=== PATIENT | female | born 1960 | race Caucasian/White ===

== ENCOUNTER → 2017-06-21 | Outpatient (CLI) | payer OTHER ==
--- NOTE | 2017-06-21 13:25 | RADIOLOGY REPORT (SQ) ---
EXAM DESCRIPTION: CHEST PA/LAT COMPLETED DATE/TIME: 06/21/2017 1:03 pm REASON FOR STUDY: FOREIGN BODY SCREEN COMPARISON: Two-view chest 01/28/2009 EXAM PARAMETERS: NUMBER OF VIEWS: two views TECHNIQUE: Digital Frontal and Lateral radiographic views of the chest acquired. RADIATION DOSE: NA LIMITATIONS: none FINDINGS: LUNGS AND PLEURA: No opacities, masses or pneumothorax. No pleural effusion. MEDIASTINUM AND HILAR STRUCTURES: No masses or contour abnormalities. HEART AND VASCULAR STRUCTURES: Heart normal size. No evidence for failure. BONES: No acute findings. HARDWARE: None in the chest. Clips right upper quadrant post cholecystectomy. OTHER: No other significant finding. IMPRESSION: NO SIGNIFICANT RADIOGRAPHIC FINDING IN THE CHEST. TECHNICAL DOCUMENTATION: JOB ID: [id number] [employer]- All Rights Reserved
--- NOTE | 2017-06-21 15:30 | RADIOLOGY REPORT (SQ) ---
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 LIMITATIONS: None. FINDINGS: ALIGNMENT: Normal. VERTEBRAE: Intact. BONE MARROW: Normal. No marrow replacement or reactive changes. DISCS: Mild diffuse decreased T2 weighted intervertebral disc signal throughout the cervical spine HARDWARE: None in the spine. CORD AND BASE OF BRAIN: Normal in size and signal intensity. SOFT TISSUES: Multiple thyroid complex cystic masses are present. Formal thyroid ultrasound recommen ded. C1-C2: No significant spinal stenosis. C2-C3: No significant spinal stenosis or exit foraminal stenosis. C3-C4: No significant spinal stenosis or exit foraminal stenosis. C4-C5: No central stenosis. Mild bilateral foraminal narrowing right greater than left from facet an d uncovertebral hypertrophy. C5-C6: No central stenosis. Mild posterior disc bulging. Mild bilateral foraminal narrowing from fa cet and uncovertebral hypertrophy. C6-C7: Mild posterior disc bulging. No significant central stenosis. No significant foraminal narro wing. C7-T1: No central or foraminal stenosis. Right-sided facet arthropathy with bony spurring best shown on sagittal T2 image 2. UPPER THORACIC: Incompletely imaged. No significant spinal stenosis or exit foraminal stenosis. OTHER: No other significant finding. IMPRESSION: No significant central or foraminal encroachment. TECHNICAL DOCUMENTATION: JOB ID: [id number] [employer]- All Rights Reserved
== END ==
LOC: RAD 12:31
PROVIDERS: ATTEND Family Medicine
DX: M47.812 Spondylosis without myelopathy or radiculopathy, cervical region (principal)
CPT/HCPCS: 71020; 72141

== ENCOUNTER → 2017-07-10 | Outpatient (CLI) | payer OTHER ==
--- NOTE | 2017-07-10 10:07 | RADIOLOGY REPORT (SQ) ---
EXAM DESCRIPTION: COOKIE SWALLOW COMPLETED DATE/TIME: 07/10/2017 9:21 am REASON FOR STUDY: DYSPHAGIA (R13.19) M54.2 CERVICALGIA R13.19 OTHER DYSPHAGIA R20.2 PARESTHESIA O F SKIN COMPARISON: Modified barium swallow 03/21/2011 TECHNIQUE: Videofluoroscopic swallowing examination was performed in conjunction with speech patholo gy. Videofluoroscopic imaging was obtained and reviewed and these are the findings: RADIATION DOSE: 2 minutes 25 seconds of fluoroscopy was used. 2 images saved to PACS. LIMITATIONS: None FINDINGS: The patient was brought into the fluoro room and placed upright on a modified barium swall ow chair. The patient was then given multiple consistencies mixed with barium to swallow under live fluoroscopic video guidance. According to the Speech Pathologist there was no penetration or aspirat ion. Mild prominence of the soft tissues along the base of the tongue which are nonspecific, recommen d direct visualization further evaluation. IMPRESSION: NO EVIDENCE OF PENETRATION OR ASPIRATION. MILD PROMINENT SOFT TISSUES OF THE BASE OF TH E TONGUE DESCRIBED.PLEASE SEE SPEECH PATHOLOGIST REPORT FOR OTHER FINDINGS AND RECOMMENDATIONS. COMMENT: Quality ID [id number]: Final reports for procedures using fluoroscopy that document radiation exp osure indices, or exposure time and number of fluorographic images (if radiation exposure indices are not available) TECHNICAL DOCUMENTATION: JOB ID: [id number] [employer]- All Rights Reserved
--- NOTE | 2017-07-10 10:38 | RADIOLOGY REPORT (SQ) ---
EXAM DESCRIPTION: MRI HEAD WITHOUT COMPLETED DATE/TIME: 07/10/2017 9:59 am REASON FOR STUDY: NECK PAIN (M54.2), PARESTHESIAS (R20.2), OTHER DYSPHAGIA (R13.19) M54.2 CERVICALG IA R13.19 OTHER DYSPHAGIA R20.2 PARESTHESIA OF SKIN COMPARISON: 04/01/2011 and 04/04/2007. TECHNIQUE: Multiplanar imaging includes non-contrasted T1, T2, FLAIR, and diffusion with ADC map seq uences. Images stored on PACS. LIMITATIONS: None. FINDINGS: ANATOMY: No anomalies. Normal vascular flow voids. Pituitary fossa normal. CSF SPACES: Normal in size and contour. No hemorrhage. CEREBRUM: Sulci and gyri normal in size and contour. Few scattered areas of increased white matter s ignal on FLAIR imaging unchanged. No evidence of hemorrhage, mass, or extraaxial fluid collection. POSTERIOR FOSSA: No signal alteration. No hemorrhage. No edema, masses or mass effect. Internal tobin tory canals, cerebello-pontine angles, mastoids normal. DIFFUSION IMAGING: Negative for acute or sub-acute infarction. ORBITS: No masses. Globes normal. PARANASAL SINUSES: No fluid levels. Mucosa normal. OTHER: No other significant finding. IMPRESSION: STABLE MRI OF THE BRAIN WITHOUT INTRAVENOUS GADOLINIUM CONTRAST. AGAIN SEEN ARE A FEW S CATTERED AREAS OF INCREASED WHITE MATTER SIGNAL ON FLAIR IMAGING. THESE ARE NONSPECIFIC AND COULD BE RELATED TO CHRONIC MICROVASCULAR ISCHEMIA. MAY ALSO BE SEEN SEQUELA OF MIGRAINE HEADACHES. DEMY ELINATING CONDITION LESS LIKELY BUT POSSIBLE. OVERALL NO CHANGE SINCE 2006. EVIDENCE OF ACUTE STROKE: NO. TECHNICAL DOCUMENTATION: JOB ID: [id number]- All Rights Reserved
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
== END ==
LOC: RAD 08:30
PROVIDERS: ATTEND Family Medicine
DX: M54.2 Cervicalgia (principal); R13.19 Other dysphagia; R20.2 Paresthesia of skin
CPT/HCPCS: 70551; 74230; G8996-GN; G8997-GN; G8998-GN